=== PATIENT | female | born 1965 | race Caucasian/White ===

== ENCOUNTER 2024-04-07 15:18 | Emergency (ER) | payer MEDICARE, MEDICAID, SELFPAY ==
[2024-04-07 15:37] VITALS: BP 122/71; PULSE 86; RESP 18; TEMP 36.6; O2SAT 99; BMI 21.2
--- NOTE | 2024-04-07 15:41 | ED_ITS ---
HPI - Dental/Oral General Chief complaint: Dental/Oral Stated complaint: gum abscess Time Seen by Provider: 04/07/24 15:44 Source: patient and family Mode of arrival: ambulatory Limitations: no limitations History of Present Illness ED Provider: Hardy Vega PA-C HPI Narrative: 58 yo female presents to the ER for evaluation of acute on chronic upper gum ulcers and pain that have been on/off since November. She has seen dental schools in [place] and was most recently prescribed a topical steroids and given a referral to [facility] but she did not know what [facility] stood for. She was told she needed biopsies. she states she has dentures but has not used them since November because of the open sores in her mouth on her bilateral upper gums. she reports having been on a few courses of antibiotics, last several weeks ago. history of associated facial swelling but not this time. no difficulty opening the mouth. pain w/ eating. no fevers. she is on oxycodone for chronic pain so pain is currently a 3/10 Onset (ago): month(s) Duration: worsening Severity: moderate Severity scale (1-10): 3 Relieving factors: prescription analgesics Exacerbating factors: chewing Associated symptoms: gum swelling Treatment prior to arrival: none Related Data Previous Rx's ?Medication ?Instructions ?Recorded amoxicillin 500 mg-potassium 1 tab PO BID #14 tabs 04/07/24 clavulanate 125 mg tablet (Augmentin) Allergies Allergy/AdvReac Type Severity Reaction Status Date / Time albuterol AdvReac Shakiness Verified 04/07/24 15:43 Review of Systems Review of Systems: Yes all other systems are reviewed and are negative PMFSH Social History Social History Advance Directives: No Advance Directives Information Provided: No Physical Exam Vital Signs: Vital Signs: Last Vital Signs Temp 98 F 04/07/24 15:37 Pulse 86 04/07/24 15:37 Resp 18 04/07/24 15:37 BP 122/71 04/07/24 15:37 Pulse Ox 99 04/07/24 15:37 O2 Del Method Room Air 04/07/24 15:37 BMI result Body Mass Index 21.2 Const: General: cooperative, comfortable and no acute distress Nutritional Appearance: thin Orientation/consciousness: patient oriented x3 Limitations: no limitations HEENT: Head: Yes normal to inspection and Yes normocephalic Ears: hearing grossly normal bilaterally and external ears normal General nose exam: Normal external nose present Face and sinus: Yes normal facial exam and Yes face symmetric Mouth: lip normal, tongue normal, oropharynx normal and moist mucous membranes Teeth and gingiva: gingiva abnormal tender and discolored (no dentition present - over the areas of where teeth 1 and 16 would be there are two areas of ulceration w/ white center. no fluctuance) Throat: Yes posterior oropharynx normal, Yes tonsils normal and Yes uvula midline Eyes: General: appearance normal, both eyes and all related structures Neck: Neck: Yes normal visual inspection Resp: Effort & Inspection: normal respiratory effort and able to speak in complete sentences GI: Inspection: Yes normal to inspection Skin: General skin exam: no rashes or lesions noted Neuro: General: patient oriented x3 Extrem: General: Yes normal to inspection Psych: Appearance: grossly normal and well kempt Mental Status: mental status grossly normal Speech and movement: Normal speech and movement present Medical Decision Making Medical Decision Making MDM Narrative: 58 y/o female hx complete dental extractions in the past presents to the ER for evaluation of ulcerations in her gums in the bilateral upper, posterior areas. no associated facial swelling. no neck swelling. no trismus. she has a referral to [facility] but admits she did not know who to call or what [facility] was. she was told she needed a biopsy. explained that this does not occur in the ER. we discussed appropriate outpatient follow up. given current flare of pain and tenderness on exam, will prescribe a course of augmentin in the event abscess/infection is developing. patient agrees w/ plan and is stable for discharge home. Differential Diagnosis Differential Diagnoses: The differential diagnosis associated with the presentation includes gingival abscess, gingivitis, stomatitis, oral cancer Independent Historian Clinical information obtained from an independent historian. History obtained from or confirmed by: Spouse Tests considered The following testing was considered but not selected: considered labs and CT scan of the facial bones however low clinical suspicion for abscess at this time Prescription Management I considered prescription management with: Pain Medication and Antibiotic Critical Care Time Critical Care Time Critical Care Time: No Discharge Plan Discharge Clinical Impression: Gingival ulcer Patient Disposition: Home, Self-Care Instructions: Gingivitis (ED) Additional Instructions: Take the prescribed antibiotics as directed, complete the entire course and do not miss any doses Follow up with [facility] specialist Take motrin and tylenol around the clock If you develop new or worsening symptoms call 911 or come back to the ER for further evaluation. Prescriptions: New amoxicillin-pot clavulanate [Augmentin] 500-125 mg tablet 1 tab PO BID Qty: 14 0RF Discharge Date/Time: 04/07/24 16:00 Print Language: [place]
--- NOTE | 2024-04-07 15:59 | PC.NURSE ---
PT WAS SEEN BY TRIAGE PROVIDER AND GIVEN PRESCRIPTION AND FOLLOW UP RECOMMENDATIONS
== END 2024-04-07 16:00 | disposition home or self-care (01) ==
PROVIDERS: Emergency Provider Emergency Medicine
DX: K06.8 Other specified disorders of gingiva and edentulous alveolar ridge (principal)
CPT/HCPCS: 99281